=== PATIENT | male | born 1975 | race Caucasian/White ===

== ENCOUNTER 2016-11-29 20:11 | Emergency (ER) | payer OTHER ==
--- NOTE | 2016-11-29 21:09 | RADIOLOGY REPORT (SQ) ---
EXAM DESCRIPTION: CHEST PA/LAT COMPLETED DATE/TIME: 11/29/2016 9:00 pm REASON FOR STUDY: chest pain COMPARISON: None. EXAM PARAMETERS: NUMBER OF VIEWS: two views TECHNIQUE: Digital Frontal and Lateral radiographic views of the chest acquired. RADIATION DOSE: NA LIMITATIONS: none FINDINGS: LUNGS AND PLEURA: No opacities, masses or pneumothorax. No pleural effusion. MEDIASTINUM AND HILAR STRUCTURES: No masses or contour abnormalities. HEART AND VASCULAR STRUCTURES: Heart normal size. No evidence for failure. BONES: No acute findings. HARDWARE: None in the chest. OTHER: No other significant finding. IMPRESSION: NO SIGNIFICANT RADIOGRAPHIC FINDING IN THE CHEST. TECHNICAL DOCUMENTATION: JOB ID: [id number] [employer]- All Rights Reserved
[2016-11-29 21:32] LABS: APPEARANCE,URINE CLEAR; BILIRUBIN,URINE NEGATIVE (NEGATIVE); GLUCOSE, URINE NEGATIVE (NEGATIVE); KETONES,URINE NEGATIVE (NEGATIVE); LEUKOCYTE ESTERASE,URINE NEGATIVE (NEGATIVE); NITRITE,URINE NEGATIVE (NEGATIVE); PROTEIN,URINE NEGATIVE (NEGATIVE); URINE SPECIFIC GRAVITY 1.009; UROBILINOGEN,URINE NEGATIVE mg/dL (<2.0)
[2016-11-29 21:51] LABS: ABSOLUTE EOSINOPHILS # (AUTO) 0.2 10^3/uL (0.0-0.6); ABSOLUTE LYMPHOCYTES (AUTO) 1.8 10^3/uL (0.5-4.7); ABSOLUTE MONOCYTES (AUTO) 0.7 10^3/uL (0.1-1.4); ABSOLUTE NEUT (AUTO) 5.1 10^3/uL (1.7-8.2); BASOPHILS % (AUTO) 0.6 % (0-2); EOSINOPHILS % (AUTO) 2.1 % (0-6); HEMATOCRIT 45.1 % (37.9-51.0); HEMOGLOBIN 14.6 g/dL (13.5-17.0); HGB HCT DIFFERENCE -1.3; LYMPHOCYTES % (AUTO) 22.9 % (13-45); MEAN CORPUSCULAR HEMOGLOBIN 26.9 pg (27.0-33.4); MEAN CORPUSCULAR HGB CONC 32.4 g/dL (32.0-36.0); MEAN CORPUSCULAR VOLUME 83 fl (80-97); MONOCYTES % (AUTO) 9.3 % (3-13); RED BLOOD COUNT 5.42 10^6/uL (4.35-5.55); RED CELL DISTRIBUTION WIDTH 13.2 % (11.5-14.0); SEGMENTED NEUTROPHILS % (AUTO) 65.1 % (42-78); WHITE BLOOD COUNT 7.8 10^3/uL (4.0-10.5)
[2016-11-29 22:03] LABS: ALANINE AMINOTRANSFERASE 43 U/L (21-72); ALBUMIN 4.5 g/dL (3.5-5.0); ALKALINE PHOSPHATASE 68 U/L (38-126); ANION GAP 13 (5-19); ASPARTATE AMINO TRANSFERASE 30 U/L (17-59); BILIRUBIN,DIRECT 0.2 mg/dL (0.0-0.4); BILIRUBIN,TOTAL 1.9 mg/dL (0.2-1.3); BLOOD UREA NITROGEN 13 mg/dL (7-20); CALCIUM 9.5 mg/dL (8.4-10.2); CARBON DIOXIDE 26 mmol/L (22-30); CHLORIDE 103 mmol/L (98-107); CREATINE KINASE 92 U/L (55-170); CREATININE RESULT 0.85 mg/dL (0.52-1.25); GLUCOSE 87 mg/dL (75-110); LIPASE 56.5 U/L (23-300); POTASSIUM 4.1 mmol/L (3.6-5.0); SODIUM 141.5 mmol/L (137-145); TOTAL PROTEIN 7.8 g/dL (6.3-8.2)
--- NOTE | 2016-11-29 22:22 | ER Document Report ---
ED GI/ - General Chief Complaint: Abdominal Pain Stated Complaint: UPPER ABDOMINAL/FLANK PAIN Time Seen by Provider: 11/29/16 20:49 Notes: Patient is a 41-year-old male, no past medical history, presents with 3 days of right upper quadrant abdominal pain, worse when he takes a deep breath or presses on his abdomen. He saw his primary care physician yesterday and was told to come to the ER if the pain worsened. He denies nausea, vomiting, fevers , hematemesis, diarrhea or constipation. TRAVEL OUTSIDE OF THE [place] IN LAST 30 DAYS: No - Related Data Allergies/Adverse Reactions: Penicillins Allergy (Verified 11/29/16 20:23) Past Medical History - General Information source: Patient - Social History Smoking Status: Unknown if Ever Smoked Family History: Reviewed & Not Pertinent Patient has suicidal ideation: No Patient has homicidal ideation: No Renal/ Medical History: Denies: Hx Peritoneal Dialysis Review of Systems - Review of Systems Notes: REVIEW OF SYSTEMS: CONSTITUTIONAL: -fevers, -chills EENT: -eye pain, -difficulty swallowing, -nasal congestion CARDIOVASCULAR:-chest pain, -syncope. RESPIRATORY: -cough, -SOB GASTROINTESTINAL: +RUQ abdominal pain, - nausea, -vomiting, -diarrhea GENITOURINARY: -dysuria, -hematuria MUSCULOSKELETAL: -back pain, -neck pain SKIN: -rash or skin lesions. HEMATOLOGIC: -easy bruising or bleeding. LYMPHATIC: -swollen, enlarged glands. NEUROLOGICAL: -altered mental status or loss of consciousness, -headache, - neurologic symptoms PSYCHIATRIC: -anxiety, -depression. ALL OTHER SYSTEMS REVIEWED AND NEGATIVE. Physical Exam - Vital signs Vitals: Temp Pulse Resp BP Pulse Ox 98.5 F 87 20 149/93 H 98 11/29/16 20:20 11/29/16 20:20 11/29/16 20:20 11/29/16 20:20 11/29/16 20:20 - Notes Notes: PHYSICAL EXAMINATION: GENERAL: Well-appearing, well-nourished and in no acute distress. HEAD: Atraumatic, normocephalic. EYES: Pupils equal round and reactive to light, extraocular movements intact, sclera anicteric, conjunctiva are normal. ENT: nares patent, oropharynx clear without exudates. Moist mucous membranes. NECK: Normal range of motion, supple without lymphadenopathy LUNGS: Breath sounds clear to auscultation bilaterally and equal. No wheezes rales or rhonchi. HEART: Regular rate and rhythm without murmurs ABDOMEN: Soft, RUQ abdominal tenderness, normoactive bowel sounds. No guarding , no rebound. No masses appreciated. EXTREMITIES: Normal range of motion, no pitting or edema. No cyanosis. NEUROLOGICAL: Cranial nerves grossly intact. Normal speech, normal gait. Normal sensory and motor exams. PSYCH: Normal mood, normal affect. SKIN: Warm, Dry, normal turgor, no rashes or lesions noted. Course - Re-evaluation Re-evalutation: Pt appears well and nontoxic. His ultrasound shows a possible adherent gallstone, but no evidence of cholecystitis. Patient is eating without any nausea or pain. Instructed him to eat a low-fat diet and follow-up with the surgeon to discuss removal. - Vital Signs Vital signs: Temp Pulse Resp BP Pulse Ox 98.5 F 70 18 134/78 H 100 11/29/16 20:20 11/30/16 00:25 11/30/16 00:25 11/30/16 00:25 11/30/16 00:25 - Laboratory Result Diagrams: 11/29/16 21:35 11/29/16 21:35 Laboratory results interpreted by me: 11/29/16 11/29/16 21:35 21:35 MCH 26.9 L Total Bilirubin 1.9 H - Diagnostic Test Radiology reviewed: Image reviewed, Reports reviewed Radiology results interpreted by me: RUHector US: possible adherent gallstone or gallbladder polyp Discharge - Discharge Clinical Impression: Gallstone Qualifiers: Cholecystitis presence: without cholecystitis Biliary obstruction: without biliary obstruction Qualified Code(s): K80.20 - Calculus of gallbladder without cholecystitis without obstruction Condition: Good Disposition: HOME, SELF-CARE Additional Instructions: ABDOMINAL PAIN: There are many causes of abdominal pain. Pain can mean a serious problem requiring surgery (such as appendicitis). It can also be an innocent problem that goes away on its own (such as a viral infection). Often, time must pass to determine the cause of pain. The physician does not feel that hospitalization is necessary, at present. Things may change within the next 24 hours. Call the doctor or come back for re- examination if any problems occur, such as: (1) Pain that becomes more severe, steady, or becomes concentrated in one specific area. Also, pain that is more severe with movement or coughing. (2) Vomiting that persists or becomes more frequent. (3) Blood in the vomitus, urine, or bowel movements. Blood in the stool may have a tarry or black appearance. (4) Shaking chills or fever greater than 100 degrees F. (5) The abdomen becomes more distended or swollen. (6) Bowel movements cease. (7) Failure to improve as expected. GALLBLADDER DISEASE: Your evaluation shows evidence of gallbladder disease. The gallbladder is a pouch under the liver which stores bile. Stones, infection, or irritation of the gallbladder cause attacks of pain. Certain foods -- fats in particular -- may provoke attacks. The usual treatment for gallbladder disease is surgical removal of the gallbladder -- called a cholecystectomy. You will be referred to a physician qualified to advise you on the best treatment for your problem. Hospitalization is not necessary. Take clear liquids only until you are painfree. After that, you should stay on a low-fat diet, with frequent SMALL meals. Call the doctor or return at once if you develop severe pain, repeated vomiting, fever, or jaundice (a yellow color in the skin and whites of the eyes) . LOW-FAT DIET: The physician has recommended a low-fat diet. This diet is often used for gallbladder or pancreas problems. Your meals should be high-carbohydrate (potato, apples, noodles, breads, vegetables). Eat fish or skinless chicken (boiled or baked rather than fried) for protein. Beans and peas are good sources of fat-free protein. Soups are usually very low-fat. Don't eat anything fried. Avoid red meats. Avoid most dairy products. Skim milk and non-fat yogurt are OK. Most popular cheeses are very high-fat. Don't add butter or sauces -- use lemon or pepper instead. If you like salads, use one of the new "non-fat" dressings. "Fast Food" is "fat food." There is virtually nothing from a typical fast- food restaurant that you can eat. Fish patties and chicken nuggets are almost always deep-fat fried. "Special Sauces" are mostly fat. FOLLOW-UP CARE: If you have been referred to a physician for follow-up care, call the physician s office for an appointment as you were instructed or within the next two days. If you experience worsening or a significant change in your symptoms, notify the physician immediately or return to the Emergency Department at any time for re-evaluation. Referrals: LOLLY ROSENTHAL MD [ACTIVE STAFF] - Follow up as needed
--- NOTE | 2016-11-29 22:32 | RADIOLOGY REPORT (SQ) ---
EXAM DESCRIPTION: U/S ABDOMEN LIMITED W/O DOP COMPLETED DATE/TIME: 11/29/2016 10:19 pm REASON FOR STUDY: RUQ pain COMPARISON: None. TECHNIQUE: Dynamic and static grayscale images acquired of the abdomen and recorded on PACS. Additio nal selected color Doppler and spectral images recorded. LIMITATIONS: Intervening bowel gas limits evaluation of the pancreas. FINDINGS: PANCREAS: No masses are visualized within the head or the body; the tail is not adequately evaluated. LIVER: No masses. Diffusely increased echotexture consistent with hepatic steatosis. LIVER VASCULATURE: Normal directional flow of the main portal vein and hepatic veins. GALLBLADDER: A non mobile echogenic focus which appears adherent to the gallbladder wall may represen t an adherent stone versus a small polyp; no vascular pedicle with demonstrated. ULTRASOUND-DETECTED KHAN'S SIGN: Negative. INTRAHEPATIC DUCTS AND COMMON DUCT: CBD and intrahepatic ducts normal caliber. No filling defects. INFERIOR VENA CAVA: Normal flow. AORTA: No aneurysm. RIGHT KIDNEY: Normal size. Normal echogenicity. No solid or suspicious masses. No hydronephrosis. No calcifications. PERITONEAL AND RIGHT PLEURAL SPACE: No ascites or effusions. OTHER: No other significant findings. IMPRESSION: Adherent stone versus small gallbladder polyp. No evidence of cholecystitis. Incidenta l note is made of hepatic steatosis. TECHNICAL DOCUMENTATION: JOB ID: [id number] [employer]- All Rights Reserved
[2016-11-30 00:26] VITALS: BP 134/78
--- NOTE | 2016-11-30 12:56 | EKG REPORT ---
SEVERITY:- NORMAL ECG - SINUS RHYTHM : Confirmed by: Michelle Caballero MD 30-Nov-2016 12:55:27
== END 2016-11-30 00:26 | disposition home or self-care (01) ==
LOC: ER 20:11
DX: K80.20 Calculus of gallbladder without cholecystitis without obstruction (principal); R10.10 Upper abdominal pain, unspecified
CPT/HCPCS: 36415; 71020; 76705; 80053; 81001; 82550; 83690; 85025; 93005; 93010; 99284